=== PATIENT | female | born 1980 ===

== ENCOUNTER 2017-03-20 12:29 | Emergency (ER) | payer MEDICAID ==
[2017-03-20 12:59] VITALS: BP 99/61; PULSE 90; RESP 19; TEMP 99.6; O2SAT 100
[2017-03-20] MEDS ORDERED: Naproxen 500 MG TAB PO ONE ×2 (13:12→13:24)
--- NOTE | 2017-03-20 13:50 | ED PDOC ---
HPI: General Adult Time Seen by Provider: 03/20/17 13:07 Chief Complaint (Nursing): Flu-like Symptoms Chief Complaint (Provider): Flu-like Symptoms History Per: Patient History/Exam Limitations: no limitations Onset/Duration Of Symptoms: Days (x3 days) Current Symptoms Are (Timing): Still Present Additional Complaint(s): 37 y/o female presents to the emergency department with a complaint of a sore throat, ear aches bilaterally, and dysuria x3 days. Reports feeling febrile but did not take temperature at home. Denies back/ flank pain, hematuria, nausea, vomiting, or cough. PMD: Dr. Iza Nichole MD Past Medical History Reviewed: Historical Data, Nursing Documentation, Vital Signs Vital Signs: Last Vital Signs Temp 99.6 F 03/20/17 12:56 Pulse 90 03/20/17 12:56 Resp 19 03/20/17 12:56 BP 99/61 L 03/20/17 12:56 Pulse Ox 100 03/20/17 13:53 - Medical History PMH: No Chronic Diseases Denies: Chronic Kidney Disease - Family History Family History: States: No Known Family Hx - Immunization History Hx Tetanus Toxoid Vaccination: No Hx Influenza Vaccination: No Hx Pneumococcal Vaccination: No - Home Medications Home Medications: Ambulatory Orders Medication Instructions Recorded Cholecalciferol (Vitamin D3) 5,000 iu PO QWK 10/28/15 [Vitamin D] Nitrofurantoin Macrocrystals 100 mg PO BID #14 cap 03/20/17 [Macrobid] Penicillin VK [Pen-Vee K] 500 mg PO Q6 #40 tab 03/20/17 - Allergies Allergies/Adverse Reactions: Allergies Allergy/AdvReac Type Severity Reaction Status Date / Time No Known Allergies Allergy Verified 09/25/15 16:04 Review of Systems ROS Statement: Except As Marked, All Systems Reviewed And Found Negative Constitutional: Positive for: Other ([place] febrile but did not take temperature) ENT: Positive for: Ear Pain (b/l ear aches), Throat Pain Respiratory: Negative for: Cough Gastrointestinal: Negative for: Nausea, Vomiting Genitourinary Female: Positive for: Dysuria. Negative for: Hematuria Musculoskeletal: Negative for: Back Pain (or flank pain) Physical Exam - Reviewed Nursing Documentation Reviewed: Yes Vital Signs Reviewed: Yes - Physical Exam Appears: Positive for: Well, Non-toxic, No Acute Distress Head Exam: Positive for: ATRAUMATIC, NORMOCEPHALIC Skin: Positive for: Normal Color, Warm, Dry ENT: Positive for: TM Is/Are (Non erythematous and non bulging b/l ), Pharyngeal Erythema (with bilaterally tonsillar erythema). Negative for: Tonsillar Exudate Cardiovascular/Chest: Positive for: Regular Rate, Rhythm. Negative for: Murmur Respiratory: Positive for: Normal Breath Sounds. Negative for: Accessory Muscle Use, Respiratory Distress Gastrointestinal/Abdominal: Positive for: Normal Exam, Soft. Negative for: Tenderness Back: Positive for: Normal Inspection. Negative for: L CVA Tenderness, R CVA Tenderness - Laboratory Results Urine POC: Negative Urine dip results: Positive for: Leukocyte Esterase (small), Blood (moderate). Negative for: Nitrate, Ketones, Glucose, Bilirubin, Protein - ECG O2 Sat by Pulse Oximetry: 100 (RA) Pulse Ox Interpretation: Normal Medical Decision Making Medical Decision Making: Time: 13:07 Initial impression: Flu-like symptoms Initial plan: --ED Urine Dipstick (POC) --ED Urine --Naproxen 500 mg PO --Urine C&S --[facility] --Revaluation Scribe Attestation: Documented by Irina Plummer, acting as a scribe for Gal Barillas PA-C. Provider Scribe Attestation: All medical record entries made by the Scribe were at my direction and personally dictated by me. I have reviewed the chart and agree that the record accurately reflects my personal performance of the history, physical exam, medical decision making, and the department course for this patient. I have also personally directed, reviewed, and agree with the discharge instructions and disposition. Disposition - Clinical Impression Clinical Impression: Pharyngitis, UTI (urinary tract infection) - Patient ED Disposition Is Patient to be Admitted: No - Disposition Referrals: [facility] [Outside] Disposition: Routine/Home Disposition Time: 14:03 Condition: STABLE Prescriptions: Nitrofurantoin Macrocrystals [Macrobid] 100 mg PO BID #14 cap Penicillin VK [Pen-Vee K] 500 mg PO Q6 #40 tab Instructions: Urinary Tract Infection in Women (ED), Strep Throat (ED) Print Language: NEPALI
== END 2017-03-20 14:13 | disposition home or self-care (01) ==
LOC: H.ER 12:29
DX: N39.0 Urinary tract infection, site not specified (principal); J02.9 Acute pharyngitis, unspecified; R50.9 Fever, unspecified

== ENCOUNTER 2018-06-19 06:08 | Emergency (ER) | payer MEDICAID ==
[2018-06-19] MEDS ORDERED: Iohexol 240 (50 ml) ONE (07:51)
[2018-06-19] MEDS: Sodium Chloride 0.9% 1,000 ML IV STA (08:06)
[2018-06-19] MEDS: Iohexol 240 (50 ml) PO ONE (08:06)
[2018-06-19 08:31] LABS: BASO % 0.1 % (0.0-2.0); EOS % 0.3 % (0.0-4.0); HEMOGLOBIN 14.5 g/dL (12.0-16.0); LYMPH % 6.2 % (20.0-40.0); MEAN CELL VOLUME 93.6 fl (81.0-99.0); MEAN CORPUSCULAR HEMOGLOBIN 32.9 pg (27.0-31.0); MEAN CORPUSCULAR HGB CONC 35.2 g/dL (33.0-37.0); MONO # 0.7 K/uL (0.0-0.8); MONO % 4.4 % (0.0-10.0); NEUT # 13.6 K/uL (1.8-7.0); NRBC % 0.2 % (0.0-0.0); PLATELET COUNT 254 K/uL (130-400); RBC 4.39 Mil/uL (3.80-5.20); RED CELL DISTRIBUTION WIDTH 13.3 % (11.5-14.5); WHITE BLOOD COUNT 15.3 K/uL (4.8-10.8)
[2018-06-19 08:54] LABS: BLOOD UREA NITROGEN 11 mg/dl (7-17); GFR AFRICAN-AMERICAN > 60; GFR NON-AFRICAN AMERICAN > 60
[2018-06-19 08:55] LABS: ALBUMIN 4.6 g/dL (3.5-5.0); ALT/SGPT 21 U/L (9-52); AST/SGOT 36 U/L (14-36); CALCIUM 9.1 mg/dL (8.4-10.2); LIPASE 31 U/L (23-300)
--- NOTE | 2018-06-19 09:16 | ED PDOC ---
HPI: Abdomen Time Seen by Provider: 06/19/18 07:12 Chief Complaint (Nursing): Abdominal Pain Chief Complaint (Provider): Abd pain History Per: Patient History/Exam Limitations: no limitations Onset/Duration Of Symptoms: Days (today) Current Symptoms Are (Timing): Still Present Additional Complaint(s): Abd pain upper. Started today. Had some fish yesterday night. Also with nausea, vomit, diarrhea. No weakness. No headaches, chest pain, dyspnea. No fever, back pain, dysuria. Past Medical History Reviewed: Nursing Documentation, Vital Signs Vital Signs: Last Vital Signs Temp 98.8 F 06/19/18 06:17 Pulse 87 06/19/18 06:17 Resp 17 06/19/18 06:17 BP 112/71 06/19/18 06:17 Pulse Ox 97 06/19/18 14:29 - Medical History PMH: No Chronic Diseases Denies: Chronic Kidney Disease - Surgical History Surgical History: No Surg Hx - Family History Family History: States: Unknown Family Hx - Living Arrangements Living Arrangements: With Family - Immunization History Hx Tetanus Toxoid Vaccination: No Hx Influenza Vaccination: No Hx Pneumococcal Vaccination: No - Home Medications Home Medications: Ambulatory Orders Medication Instructions Recorded Cholecalciferol (Vitamin D3) 5,000 iu PO QWK 10/28/15 [Vitamin D] Nitrofurantoin Macrocrystals 100 mg PO BID #14 cap 03/20/17 [Macrobid] Penicillin VK [Penicillin VK Tab] 500 mg PO Q6 #40 tab 03/20/17 Ibuprofen [Motrin] 600 mg PO TID 7 Days tab 06/19/18 - Allergies Allergies/Adverse Reactions: Allergies Allergy/AdvReac Type Severity Reaction Status Date / Time kiwi Allergy Intermediate swollen Verified 06/19/18 06:28 lips and tongue Review of Systems ROS Statement: Except As Marked, All Systems Reviewed And Found Negative Gastrointestinal: Positive for: Nausea, Vomiting, Abdominal Pain, Diarrhea Physical Exam - Reviewed Nursing Documentation Reviewed: Yes Vital Signs Reviewed: Yes - Physical Exam Appears: Positive for: Non-toxic, No Acute Distress Head Exam: Positive for: ATRAUMATIC, NORMAL INSPECTION, NORMOCEPHALIC Skin: Positive for: Normal Color, Warm, DRY Eye Exam: Positive for: EOMI, Normal appearance, PERRL ENT: Positive for: Normal ENT Inspection Neck: Positive for: Normal, Painless ROM Cardiovascular/Chest: Positive for: Regular Rate, Rhythm Respiratory: Positive for: CNT, Normal Breath Sounds Gastrointestinal/Abdominal: Positive for: Soft, Tenderness (diffuse) Back: Positive for: Normal Inspection. Negative for: L CVA Tenderness, R CVA Tenderness Extremity: Positive for: Normal ROM Neurologic/Psych: Positive for: Alert, Oriented - Laboratory Results Result Diagrams: 06/19/18 08:25 06/19/18 08:25 Interpretation Of Abn Labs: 15.3 wbc - ECG O2 Sat by Pulse Oximetry: 97 Pulse Ox Interpretation: Normal - CT Scan/US t Other Rad Studies (CT/US): Read By Radiologist Other Rad Interpretation: There is nonobstructive jejunal-jejunal intussusception in the left mid abd - Progress ED Course And Treament: 1400: Spoke with surgery who saw pt. They discussed with Dr. Hui. Wants pt. to do po trial and if tolerates then can be dc. 1514: Pt. tolerated po, but had diarrhea and pain. Surgery saw pt. again with keno writer / runner. Pt. requested to stay in the hospital for 24 hr observation. Pt. refusing to stay. Wants to go home. Aware of possible or decreased functioning from intussusception. Pt. at bedside and agree with pt. decision. Pt. is aaox3. Has capacity to make decisions. Disposition - Clinical Impression Clinical Impression: Intussusception - Patient ED Disposition Is Patient to be Admitted: No Counseled Patient/Family Regarding: Studies Performed, Diagnosis, Need For Followup, Rx Given - Disposition Referrals: Corey Hui MD [Staff Provider] - 06/20/18 Disposition: Against Medical Advice Disposition Time: 15:18 Condition: FAIR Additional Instructions: You are going against medical advice. You have an intussusception and it needs further treatment and evaluation in the hospital. You are taking your own risk and are aware of possible or decreased functioning from it. Come back right away for further evaluation and treatment. Prescriptions: Ibuprofen [Motrin] 600 mg PO TID 7 Days tab Instructions: Intussusception Forms: [employer] (Polish) Print Language: NORTHER[place] IRISH
[2018-06-19 09:18] LABS: LYMPHOCYTE 10 % (20-50); MONOCYTE 8 % (0-10); NEUTROPHIL 81 % (42-75); PLATELET ESTIMATE NORMAL (NORMAL); REACTIVE LYMPHOCYTES 1 % (0-0); TOTAL CELLS COUNTED 100
[2018-06-19 10:37] LABS: ALB/GLOB RATIO 1.2 (1.0-2.1)
[2018-06-19] MEDS ORDERED: Iohexol 300 100 ML IJ ONE (10:41)
[2018-06-19] MEDS ORDERED: Sodium Chloride 0.9% 50 ML IV ONE (10:41)
--- NOTE | 2018-06-19 11:46 | CT ---
Date of service: 06/19/2018 PROCEDURE: CT Abdomen and Pelvis with contrast HISTORY: Abdominal pain COMPARISON: None. TECHNIQUE: CT scan of the abdomen and pelvis was performed without administration of intravenous contrast. Oral contrast was not administered. Coronal and sagittal reformatted images were obtained. Contrast dose: 95 cc Omnipaque 300 Radiation dose: Total exam DLP = 455.66 mGy-cm. This CT exam was performed using one or more of the following dose reduction techniques: Automated exposure control, adjustment of the mA and/or kV according to patient size, and/or use of iterative reconstruction technique. FINDINGS: LOWER THORAX: There is dependent atelectasis in the lung bases. Incompletely imaged are retroglandular saline breast implants. LIVER: Normal in size with homogeneous enhancement. No gross lesion or ductal dilatation. GALLBLADDER AND BILE DUCTS: No calcified gallstones. PANCREAS: Normal in size with homogeneous enhancement. No gross lesion or ductal dilatation. SPLEEN: Normal in size with homogeneous enhancement. ADRENALS: No discrete nodule. KIDNEYS AND URETERS: Normal in size with homogeneous enhancement. No hydronephrosis. No solid mass. VASCULATURE: No aortic aneurysm. BOWEL: The small bowel loops are normal in caliber. There is nonobstructive jejunal-jejunal intussusception in the left mid abdomen. The colon is unremarkable. No bowel dilatation or obstruction. APPENDIX: Normal appendix. PERITONEUM: Small amount of free fluid in the right adnexa is likely physiologic. No free air. LYMPH NODES: No enlarged lymph nodes. BLADDER: Partially distended and grossly normal in appearance. REPRODUCTIVE: The uterus is normal in size. There is a 2.8 cm simple cyst in the left ovary. BONES: No acute fracture. OTHER FINDINGS: None. IMPRESSION: No acute abdominal or pelvic abnormality. Nonobstructive jejunal-jejunal intussusception in the left mid abdomen.
--- NOTE | 2018-06-19 14:24 | CP.PCM.CON ---
History of Present Illness - History of Present Illness History of Present Illness: General Surgery Dr. Hui 38 y/o F w/ no PMHx presents to the ED c/o abd pain. Per present at bedside, pt ate small piece of unrefrigerated fried fish last evening after ice cream. Later that evening, pt developed significant abd pain w/ multiple episodes NBNB vomiting and diarrhea. Pain localized to epigastric region w/ occasional radiation to L flank. Pt denies having similar pain in the past. Nothing made pain worse. Pain meds given in ED improved pain. Since presenting to ED, abd pain, vomiting, and diarrhea have improved/resolved. Pt denies F/C, CP, SOB, syncope. Pt reports recent URI for which she is recovering. CT A/P performed in ED read as non-obstructing j-j intussussception. PMHx: denies Meds: denies ALL: kiwi PSHx: breast implants SHx: occasional EtOH; denies tobacco, drug use FHx: noncontributory Review of Systems - Review of Systems All systems: reviewed and no additional remarkable complaints except (see HPI) Past Patient History - Past Medical History & Family History Past Medical History?: Yes - Past Social History Smoking Status: Never Smoked - CARDIAC Hx Cardiac Disorders: No - PULMONARY Hx Respiratory Disorders: No - NEUROLOGICAL Hx Neurological Disorder: No - HEENT Hx HEENT Problems: No - RENAL Hx Chronic Kidney Disease: No - ENDOCRINE/METABOLIC Hx Endocrine Disorders: No - HEMATOLOGICAL/ONCOLOGICAL Hx Blood Disorders: No - INTEGUMENTARY Hx Dermatological Problems: No - MUSCULOSKELETAL/RHEUMATOLOGICAL Hx Musculoskeletal Disorders: No - GASTROINTESTINAL Hx Gastrointestinal Disorders: Yes (RECTAL BLEEDING, ABDOMINAL PAIN) - GENITOURINARY/GYNECOLOGICAL Hx Genitourinary Disorders: No - PSYCHIATRIC Hx Psychophysiologic Disorder: No Hx Substance Use: No - SURGICAL HISTORY Hx Surgeries: Yes Other/Comment: BREAST IMPLANT - ANESTHESIA Hx Anesthesia: Yes Hx Anesthesia Reactions: No Hx Malignant Hyperthermia: No Meds Allergies/Adverse Reactions: Allergies Allergy/AdvReac Type Severity Reaction Status Date / Time kiwi Allergy Intermediate swollen Verified 06/19/18 06:28 lips and tongue Physical Exam - Constitutional Appears: Non-toxic, No Acute Distress - Head Exam Head Exam: NORMAL INSPECTION - Eye Exam Eye Exam: Normal appearance - ENT Exam ENT Exam: Mucous Membranes Moist - Respiratory Exam Respiratory Exam: NORMAL BREATHING PATTERN. absent: Accessory Muscle Use, Respiratory Distress - Cardiovascular Exam Cardiovascular Exam: REGULAR RHYTHM. absent: Bradycardia, Tachycardia - GI/Abdominal Exam GI & Abdominal Exam: Soft. absent: Distended, Firm, Guarding, Rebound, Rigid, Tenderness - Extremities Exam Extremities exam: Positive for: normal inspection, pedal pulses present - Neurological Exam Neurological exam: Alert, Oriented x3 - Psychiatric Exam Psychiatric exam: Normal Affect, Normal Mood - Skin Skin Exam: Dry, Intact, Normal Color, Warm Results - Vital Signs Recent Vital Signs: Last Vital Signs Temp 98.8 F 06/19/18 06:17 Pulse 87 06/19/18 06:17 Resp 17 06/19/18 06:17 BP 112/71 06/19/18 06:17 Pulse Ox 97 06/19/18 13:01 - Labs Result Diagrams: 06/19/18 08:25 06/19/18 08:25 Labs: Laboratory Results - last 24 hr 06/19/18 06/19/18 08:25 08:25 WBC 15.3 H RBC 4.39 Hgb 14.5 Hct 41.1 MCV 93.6 MCH 32.9 H MCHC 35.2 RDW 13.3 Plt Count 254 MPV 8.0 Neut % (Auto) 89.0 H Lymph % (Auto) 6.2 L [place] % (Auto) 4.4 Eos % (Auto) 0.3 Baso % (Auto) 0.1 Neut # (Auto) 13.6 H Lymph # (Auto) 1.0 [place] # (Auto) 0.7 Eos # (Auto) 0.0 Baso # (Auto) 0.0 Neutrophils % (Manual) 81 H Lymphocytes % (Manual) 10 L Reactive Lymphs % 1 H Monocytes % (Manual) 8 Platelet Estimate Normal RBC Morphology Normal Sodium 139 Potassium 4.3 Chloride 106 Carbon Dioxide 19 L Anion Gap 18 BUN 11 Creatinine 0.5 L Est GFR ( Amer) > 60 Est GFR (Non-Af Amer) > 60 Random Glucose 107 H Calcium 9.1 Total Bilirubin 0.8 AST 36 ALT 21 Alkaline Phosphatase 65 Total Protein 8.4 H Albumin 4.6 Globulin 4.2 H Albumin/Globulin Ratio 1.2 Lipase 31 - Imaging and Cardiology CT scan - abdomen Status: Image reviewed by me, Report reviewed by me Assessment & Plan - Assessment and Plan (Free Text) Assessment: 38 y/o F w/ resolved abd pain likely 2/2 food poisoning - PO challenge CLD - non-narcotic pain management - IVF - CT findings likely 2/2 peristalsis - pt cleared for discharge from surgical standpoint if tolerates CLD - pt should return to ED if abd pain returns/worsens, continued vomiting Pt discussed w/ Dr. Ez Allen DO PGY3
[2018-06-19 17:11] VITALS: BP 122/75; PULSE 79; RESP 17; TEMP 98.4; O2SAT 100
== END 2018-06-19 16:30 | disposition left against medical advice (07) ==
LOC: H.ER 06:08
DX: K56.1 Intussusception (principal)
CPT/HCPCS: 74177; 80053; 81025; 83690; 85025; 96374; 96375; 99284; J1885; J2405; J7030; Q9966; Q9967